=== PATIENT | male | born 1965 | race Caucasian/White ===

== ENCOUNTER 2017-07-25 10:01 | Emergency (ER) | payer BC, OTHER ==
[~2017-07-25] VITALS: Ht 177.8 cm; Wt 83.9 kg
[2017-07-25] MEDS ORDERED: LACTATED RINGERS 1,000 ML IV ONE ×2 (10:17→12:06)
[2017-07-25] MEDS ORDERED: KETOROLAC 30 MG/ML VIAL IVP ONE (10:30)
[2017-07-25] MEDS ORDERED: ONDANSETRON 4 MG/2 ML (SDV) Z0FRAN IVP ONE (10:30)
--- NOTE | 2017-07-25 10:41 | ED Abdominal Pain ---
General Chief Complaint: Abdominal/GI Problems Stated Complaint: SEVERE L SIDE BACK AND ABD PAIN Nursing Triage Note: ARRIVED VIA WC TO ROOM 09. COMPLAINS OF SEVERE LEFT LOWER ABD PAIN THAT RADIATES TO HIS BACK ET STARTED APPX 1 HR AGO. Sepsis Screen: No Definite Risk Source of Information: Patient, Other ([place]) Exam Limitations: No Limitations History of Present Illness Time Seen By Provider: 10:31 Initial Comments Patient presents to ER by private conveyance with chief complaint that when he woke up this morning he was having a severe pain in his left side of his back around the level of his kidney which eventually radiated down his left flank to his left lower quadrant of his abdomen. It is accompanied by strong nausea and vomiting. He has not been able to pedis morning. He describes pain as colicky, severe and not responding to anything he's taken so far for it. Heat and not moving helps. He denies any history of trauma, surgery or other medical history. He does not take any medicines. He does not have a history of kidney stones. It hurts when he attempts to urinate. Allergies and Home Medications Allergies Coded Allergies: No Known Drug Allergies (Unverified , 07/25/17) Home Medications Ondansetron 4 Mg Tab.rapdis, 4 MG PO Q6H PRN for NAUSEA/VOMITING-1ST LINE, #20 Ref 0 Prescribed by: YONI ZABALA on 07/25/17 1241 Oxycodone HCl/Acetaminophen 1 Each Tablet, 1-2 EACH PO Q6H PRN for PAIN- MODERATE TO SEVERE, #30 Ref 0 Prescribed by: YONI ZABALA on 07/25/17 1241 Tamsulosin HCl 0.4 Mg Cap.er.24h, 0.4 MG PO HS for 7 Days, #7 Ref 0 Prescribed by: YONI ZABALA on 07/25/17 1241 Review of Systems Constitutional: No chills, No fever, No malaise Respiratory: Denies Cough, Denies Shortness of Air Cardiovascular: Denies Chest Pain, Denies Lightheadedness Gastrointestinal: See HPI, Denies Abdomen Distended, Abdominal Pain, Denies Constipated, Denies Diarrhea, Nausea, Vomiting Genitourinary: See HPI, Burning, Pain, Other (hesitancy) Musculoskeletal: see HPI, back pain Past Berxneb-Vyxmnn-Abxlzu Hx Patient Social History Alcohol Use: Denies Use Recreational Drug Use: No Smoking Status: Never a Smoker Recent Foreign Travel: No Contact w/Someone Who Travel: No Recent Infectious Disease Expo: No Surgeries History of Surgeries: No Respiratory History of Respiratory Disorde: No Cardiovascular History of Cardiac Disorders: No Neurological History of Neurological Disord: No Genitourinary History of Genitourinary Disor: No Gastrointestinal History of Gastrointestinal Di: No Musculoskeletal History of Musculoskeletal Dis: No Endocrine History of Endocrine Disorders: No HEENT History of HEENT Disorders: No Cancer History of Cancer: No Did You Recieve Any Treatments: No Psychosocial History of Psychiatric Problem: No Integumentary History of Skin or Integumenta: No Physical Exam Vital Signs VS - Last 72 Hours, by Label 07/25/17 10:01 B/P (MAP) Capillary Refill : Less Than 3 Seconds General Appearance: WD/WN, moderate distress HEENT: PERRL/EOMI, pharynx normal Respiratory: no respiratory distress, no accessory muscle use Cardiovascular: normal peripheral pulses, no edema Peripheral Pulses: 2+ Radial Pulses (R), 2+ Radial Pulses (L) Gastrointestinal: normal bowel sounds, soft, tenderness (left lower quadrant and suprapubic) Extremities: normal inspection, no pedal edema, normal capillary refill Back: normal inspection, No CVA tenderness (R), CVA tenderness (L) Neurologic/Psychiatric: alert, normal mood/affect, oriented x 3 Skin: normal color, warm/dry Progress/Results/Core Measures Results/Orders Lab Results Laboratory Tests Test 07/25/17 13:00 Range/Units Urine Color YELLOW Urine Clarity SLIGHTLY CLOUDY Urine pH 8 5-9 Urine Specific [place] 1.030 H 1.016-1.022 Urine Protein NEGATIVE NEGATIVE Urine Glucose (UA) NEGATIVE NEGATIVE Urine Ketones 2+ H NEGATIVE Urine Nitrite NEGATIVE NEGATIVE Urine Bilirubin NEGATIVE NEGATIVE Urine Urobilinogen NORMAL NORMAL MG/DL Urine Leukocyte Esterase NEGATIVE NEGATIVE Urine RBC (Auto) 3+ H NEGATIVE Urine RBC 10-25 H /HPF Urine WBC RARE /HPF Urine Squamous Epithelial Cells RARE /HPF Urine Crystals NONE /LPF Urine Bacteria NEGATIVE /HPF Urine Casts NONE /LPF Urine Mucus NEGATIVE /LPF Urine Culture Indicated NO My Orders Orders - YONI ZABALA Ua Culture If Indicated (07/25/17 10:17) Ketorolac Injection (Toradol Injection) (07/25/17 10:30) Saline Lock/Iv-Start (07/25/17 10:17) Ondansetron Injection (Zofran Injectio (07/25/17 10:30) Lactated Ringers (Lr 1000 Ml Iv Solution (07/25/17 10:17) Ct Abd/Pelvis Wo(Kidney Stone) (07/25/17 10:41) Fentanyl Injection (Sublimaze Injection (07/25/17 11:00) Lactated Ringers (Lr 1000 Ml Iv Solution (07/25/17 12:06) Medications Given in ED Current Medications Medications Dose Ordered Sig/Shaista Route Start Time Stop Time Status Last Admin Dose Admin Fentanyl Citrate 50 mcg ONCE ONCE IVP 07/25/17 11:00 07/25/17 11:01 DC 07/25/17 10:54 50 MCG Ketorolac Tromethamine 15 mg ONCE ONCE IVP 07/25/17 10:30 07/25/17 10:31 DC 07/25/17 10:22 15 MG Lactated Ringer's 1,000 ml @ 0 mls/hr Q0M ONCE IV 07/25/17 10:17 07/25/17 10:19 DC 07/25/17 10:23 1,000 MLS/HR Lactated Ringer's 1,000 ml @ 0 mls/hr Q0M ONCE IV 07/25/17 12:06 07/25/17 12:07 DC 07/25/17 12:11 1,000 MLS/HR Ondansetron HCl 4 mg ONCE ONCE IVP 07/25/17 10:30 07/25/17 10:31 DC 07/25/17 10:23 4 MG Vital Signs/I&O Vital Sign - Last 12Hours 07/25/17 10:01 B/P (MAP) Progress Note #1: Time: 10:46 Progress Note Patient's pain went from 12 out of 10 down to 6 out of 10 and his nausea is much better. He does not know anything else for pain or nausea at this time we will go ahead and trying get some urine and sent him to CT for presumed kidney stone. Progress Note #2: Time: 12:08 Progress Note Postvoid residual 40 mL. No urinary retention. Diagnostic Imaging Diagonstic Imaging: CT Plain Films/CT/US/NM/MRI: abdomen, pelvis ( Kidneystone study) Comments NAME: [facility] BATRES [facility] REC#: [id number] PHYSICIAN: YONI ZABALA MD CC: FALLON HUANG MD; YONI ZABALA Page 2 of 2 RADIOLOGY REPORT VIA [facility], [facility]. [place], [place] CC: FALLON HUANG MD; YONI ZABALA Page 1 of 2 RADIOLOGY REPORT NAME: [facility] BATRES [facility] REC#: [id number] PT STATUS: REG ER : 1965 PHYSICIAN: YONI ZABALA MD ADMIT DATE: 07/25/17/ER Signed Date of Exam: 07/25/17 CT ABD/PELVIS WO(KIDNEY STONE) PROCEDURE: CT urinary tract, rule out kidney stone. TECHNIQUE: Multiple contiguous axial images were obtained through the abdomen and pelvis without the use of intravenous contrast. INDICATION: Abdominal pain. FINDINGS: The heart size is normal. The lung bases are clear. The liver is normal in size and without focal lesions. Gallbladder is unremarkable. There is no biliary ductal dilatation. The spleen is normal. The pancreas and adrenal glands are unremarkable. There is mild left hydronephrosis and hydroureter secondary to a 3 to 4 mm stone at the left UVJ. The right kidney is normal. The aorta is nonaneurysmal. There is no CT evidence of appendicitis. There is no pelvic mass or adenopathy. There is a right inguinal hernia containing only omental fat. IMPRESSION: 1. Mild left nephrosis and hydroureter secondary to a 3-4 mm stone at the left UVJ. 2. Small right inguinal hernia containing only omental fat Dictated by: Dictated on workstation # [id number] Dict: 07/25/17 1101 Trans: 07/25/17 1140 Interpreted by: FALLON HUANG MD Electronically signed by: FALLON HUANG MD 07/25/17 1140 Reviewed: Reviewed by Id Departure Impression Impression: Primary Impression: Ureteral calculus Disposition: HOME, SELF-CARE Condition: Improved Departure-Patient Inst. Referrals: JAZMINE LOWE MD (PCP/Family) Primary Care Physician Patient Instructions: Kidney Stones in Adults Add. Discharge Instructions: Drink plenty of fluids. Caffeine is okay. Use the tamsulosin, Flomax 1 tablet every night at bedtime until after the stone passes. Strain your urine every time to try and catch the stone and if you catch it take it to your primary care physician to have it tested. Use 1-2 tablets of the oxycodone every 6 hours as needed to control your pain. Do not let your pain get out of control as it will take more pain medicine to control it. Every day that you're on oxycodone you should also be using a dose of MiraLAX to keep your stools moving. Oxycodone will cause drowsiness so you should avoid long road trips or operating heavy machinery. If you have nausea place one tablet of Zofran under the tongue and allowed to absorb your mouth every 6 hours as needed. If you develop high fevers or nausea and vomiting that does not respond to the Zofran and return to the ER. If your symptoms are not better by Thursday or you have not passed the stone then you should follow-up with Dr. Eason , urologist at [phone]. NSAID such as ibuprofen 800 mg every 8 hours or Naprosyn 2 capsules twice a day will also be helpful in controlling your pain from kidney stones. All discharge instructions reviewed with patient and/or family. Voiced understanding. Scripts Tamsulosin HCl (Tamsulosin HCl) 0.4 Mg Cap.er.24h 0.4 MG PO HS for 7 Days, #7 CAP 0 Refills Prov: YONI ZABALA 07/25/17 Ondansetron (Zofran Odt) 4 Mg Tab.rapdis 4 MG PO Q6H Y for NAUSEA/VOMITING-1ST LINE, #20 TAB 0 Refills Prov: YONI ZABALA 07/25/17 Oxycodone HCl/Acetaminophen (Percocet 10-325 mg Tablet) 1 Each Tablet 1-2 EACH PO Q6H Y for PAIN-MODERATE TO SEVERE, #30 TAB 0 Refills Prov: YONI ZABALA 07/25/17 Work/School Note: Work Release Form Date Seen in the Emergency Department: Jul 25, 2017 Return to Work: Jul 27, 2017 Restrictions: No Restrictions Copy Copies To 1: JAZMINE LOWE MD, TITUS J Jul 25, 2017 10:40
[2017-07-25] MEDS ORDERED: fentaNYL INJECTION 100 MCG/2 ML AMP IVP ONE (11:00)
--- NOTE | 2017-07-25 11:05 | Diagnostic Imaging Report ---
PROCEDURE: CT urinary tract, rule out kidney stone. TECHNIQUE: Multiple contiguous axial images were obtained through the abdomen and pelvis without the use of intravenous contrast. INDICATION: Abdominal pain. FINDINGS: The heart size is normal. The lung bases are clear. The liver is normal in size and without focal lesions. Gallbladder is unremarkable. There is no biliary ductal dilatation. The spleen is normal. The pancreas and adrenal glands are unremarkable. There is mild left hydronephrosis and hydroureter secondary to a 3 to 4 mm stone at the left UVJ. The right kidney is normal. The aorta is nonaneurysmal. There is no CT evidence of appendicitis. There is no pelvic mass or adenopathy. There is a right inguinal hernia containing only omental fat. IMPRESSION: 1. Mild left nephrosis and hydroureter secondary to a 3-4 mm stone at the left UVJ. 2. Small right inguinal hernia containing only omental fat Dictated by: Dictated on workstation # [id number]
[2017-07-25] MEDS ORDERED: OXYC-202 PO (12:41)
[2017-07-25] MEDS ORDERED: ONDA4TAB8 PO (12:41)
[2017-07-25] MEDS ORDERED: TAMS0.4C2 PO (12:41)
[2017-07-25 13:07] LABS: BILIRUBIN,URINE NEGATIVE (NEGATIVE); KETONES,URINE 2+ (NEGATIVE); LEUKOCYTE ESTERASE ,URINE NEGATIVE (NEGATIVE); NITRITE,URINE NEGATIVE (NEGATIVE); PH,URINE 8 (5-9); PROTEIN,URINE NEGATIVE (NEGATIVE); UROBILINOGEN,URINE NORMAL (NORMAL)
[2017-07-25 13:24] LABS: SQUAMOUS EPITHELIAL CELL,UR RARE /HPF; WBC,URINE RARE /HPF
[2017-07-25 13:33] VITALS: BP 114/73
== END 2017-07-25 13:33 | disposition home or self-care (01) ==
LOC: ER 10:04
DX: N20.1 Calculus of ureter (principal)
CPT/HCPCS: 74176; 81000

== ENCOUNTER → 2021-02-05 | Outpatient (CLI) | payer OTHER ==
[~2021-02-05] MED LIST: ONDA4TAB8 PO; OXYC1TAB12 PO; TAMS0.4C2 PO
--- NOTE | 2021-02-05 16:01 | Diagnostic Imaging Report ---
INDICATION: Right groin swelling and tenderness. TECHNIQUE: Sonographic interrogation of the right groin region was performed. FINDINGS: There is a questionable bowel loop in the region of the right groin which shows movement during a Valsalva maneuver. A focal hernia at this location is suspected although no definite abdominal wall defect is seen. No fluid collection is identified. IMPRESSION: Findings are suspicious for a right groin hernia. Dictated by: Dictated on workstation # [id number]
== END ==
LOC: RAD 12:59
PROVIDERS: ATTEND Nurse Practitioner Family
DX: R19.09 Other intra-abdominal and pelvic swelling, mass and lump (principal); R10.30 Lower abdominal pain, unspecified
CPT/HCPCS: 76881

== ENCOUNTER 2021-08-08 09:59 | Outpatient (CLI) | payer OTHER ==
[~2021-08-08] VITALS: Ht 177.8 cm; Wt 86.2 kg
[2021-08-08 10:14] VITALS: BP 118/79
[2021-08-08] MEDS ORDERED: SOTROVIMAB 500 MG/NS 100 ML IVPB IV ONE ×2 (10:15)
[2021-08-08] MEDS ORDERED: ACETAMINOPHEN 500 MG TAB (TYLENOL) PO PRN (10:15)
[2021-08-08] MEDS ORDERED: ONDANSETRON 4 MG/2 ML (SDV) Z0FRAN IV PRN (10:15)
[2021-08-08] MEDS ORDERED: diphenhydrAMINE 50 MG/ML INJ (BENADRYL) IV PRN (10:15)
[2021-08-08] MEDS ORDERED: EPINEPHrine INJECTION 1 MG/ML AMP IM PRN (10:15)
[2021-08-08 11:20] VITALS: BP 124/75
== END 2021-08-08 11:23 | disposition home or self-care (01) ==
LOC: INFUSION 09:59
PROVIDERS: ATTEND Family Medicine
DX: U07.1 COVID-19 (principal)